=== PATIENT | female | born 1955 | race Caucasian/White ===

== ENCOUNTER 2017-10-12 03:04 | Emergency (ER) | payer MEDICAID ==
[~2017-10-12] VITALS: Ht 170.2 cm; Wt 73.5 kg
[~2017-10-12 03:04] MED LIST: ADULT LOW DOSE81 MG; ALBUTEROL INHAL17 GM IH; ALPRAZOLAM 0.0.25 M1; AMBIEN 10 MG TA10 MG; ASPIR 8181 M1 PO; CARVEDILOL12.5 MG PO; CIPRO500 MG PO; CYCLOBENZAPRINE5 MG PO; FISH OIL 1,001000 M2 PO; FISHOIL; FLAGYL500 MG PO; FLEXERIL PO; FLOMAX0.4 MG PO; HYDROCODON-ACE1 EAC7; LEVAQUIN 750 M750 MG PO; LEVSIN0.125 MG SUBLING; LEXAPRO20 MG PO; MACROBID 100 M100 M1 PO; NORCO 5-325 TA1 EACH PO; OXYCONTIN; OXYCONTIN10 M1; OXYCONTIN10 M1 PO; OXYCONTIN20 M1; PLAVIX 75 MG TA75 M1 PO; PLAVIX 75 MG TA75 MG; PREDNISONE 20 M20 MG PO; PYRIDIUM200 MG PO; TESSALON200 MG PO; ULTRAM50 MG PO; UNICOMPLEX M TA1 TA1; VICODIN 5-3001 EACH; VICODIN 5-5001 EACH PO; VITAMIN D; VYTORIN; WELLBUTRIN XL150 MG PO; XANAX 0.5 MG0.5 MG PO; ZPAK PO
[2017-10-12 03:35] VITALS: BP 154/87
[2017-10-12] MEDS ORDERED: PRILOSEC 10MG C10 MG PO (15:21)
[2017-10-12] MEDS ORDERED: NEXIUM 40 MG CA40 M1 PO (15:22)
[2017-10-12] MEDS ORDERED: PROMS25 WY RECTAL (15:22)
[2017-10-12] MEDS ORDERED: NITROFURANTOIN25 MG PO (15:22)
[2017-10-12] MEDS ORDERED: ALL DAY ALLERGY10 M3 PO (15:23)
[2017-10-12] MEDS ORDERED: OXYCONTIN10 M1 PO (15:23)
[2017-10-12] MEDS ORDERED: FLONASE 0.05%50 MCG NASAL (15:24)
== END 2017-10-12 03:37 ==
LOC: M.ERS 03:04
DX: F10.929 Alcohol use, unspecified with intoxication, unspecified (principal); I25.2 Old myocardial infarction; F17.210 Nicotine dependence, cigarettes, uncomplicated; Z90.710 Acquired absence of both cervix and uterus; Z88.2 Allergy status to sulfonamides; Z88.0 Allergy status to penicillin; Z88.1 Allergy status to other antibiotic agents; Z88.5 Allergy status to narcotic agent; Z88.8 Allergy status to other drugs, medicaments and biological substances

== ENCOUNTER 2017-10-12 15:02 | Emergency (ER) | payer MEDICAID ==
[~2017-10-12] VITALS: Ht 170.2 cm; Wt 77.1 kg
--- NOTE | ~2017-10-12 | EKG ---
[place] [address] ELECTROCARDIOGRAM REPORT Name: ALEAH DINH Room: [facility]#: [id number] Admission: 10/12/17 Attend Phys: Discharge: 10/12/17 Date of : 53 Report #: [id number] THIS REPORT FOR: //name// [facility] ED Test Date: 2017-10-12 Test Time: 15:21:43 Pat Name: ALEAH DINH Department: Room: Gender: F Marketing Effectiveness Manager: Gustavo MARTINEZ : 1955 Requested By: Shaun Quinones Order Number: [id number] MD: Measurements Intervals [place] Rate: 68 P: [place]: QRS: 48 QRSD: 92 T: -33 QT: 468 QTc: 498 Interpretive Statements Atrial flutter Borderline T abnormalities, inferior leads Borderline prolonged QT interval Compared to ECG 08/06/2017 08:08:13 T-wave abnormality now present Sinus rhythm no longer present Myocardial infarct finding no longer present [email or web address] By: 1521 1521 Epiphany Epiphany, /EPI
[2017-10-12] MEDS ORDERED: PRILOSEC 10MG C10 MG PO (15:21)
[2017-10-12] MEDS ORDERED: NITROFURANTOIN25 MG PO (15:22)
[2017-10-12] MEDS ORDERED: NEXIUM 40 MG CA40 M1 PO (15:22)
[2017-10-12] MEDS ORDERED: PROMS25 WY RECTAL (15:22)
[2017-10-12] MEDS ORDERED: OXYCONTIN10 M1 PO (15:23)
[2017-10-12] MEDS ORDERED: ALL DAY ALLERGY10 M3 PO (15:23)
[2017-10-12] MEDS ORDERED: FLONASE 0.05%50 MCG NASAL (15:24)
[2017-10-12 15:42] LABS: ABSOLUTE BASOPHILS 0.1 thou/uL (0.0-0.2); ABSOLUTE LYMPHOCYTES 1.8 thou/uL (0.8-5.3); ABSOLUTE MONOCYTES 0.6 thou/uL (0.0-1.2); ABSOLUTE NEUTROPHILS 8.6 thou/uL (1.6-8.1); BASOPHILS 0.5 %; EOSINOPHILS 0.1 %; HEMATOCRIT 38.6 % (37.0-47.0); HEMOGLOBIN 12.9 gm/dL (12.0-15.0); LYMPHOCYTES 16.6 %; MCH 30.6 pg (26.0-34.0); MCHC 33.5 g/dL (28.0-37.0); MCV 91.3 fL (80.0-100.0); MONOCYTES 5.1 %; MPV 8.3 fl. (7.2-11.1); NUCLEATED RBCS 0 /100WBC; PLATELET COUNT* 246 thou/uL (150-400); POLYS 77.7 %; RBC 4.22 mil/uL (4.20-5.00); RDW-CV 15.6 % (10.5-14.5); WBC 11.1 thou/uL (4.0-11.0)
[2017-10-12 15:46] LABS: ANION GAP 12 mmol/L (7-16); BUN 11 mg/dL (7-18); CALCIUM 8.6 mg/dL (8.5-10.1); CHLORIDE 103 mmol/L (98-107); CO2 27 mmol/L (21-32); CREATININE 1.3 mg/dL (0.6-1.3); GLUCOSE 142 mg/dL (70-99); SODIUM 142 mmol/L (136-145)
[2017-10-12 15:53] LABS: ALBUMIN 3.3 g/dL (3.4-5.0); ALKALINE PHOSPHATASE 107 U/L (46-116); SGOT 20 U/L (15-37); SGPT 21 U/L (30-65); TOTAL BILIRUBIN 0.7 mg/dL (<0.1-1.0); TOTAL PROTEIN 6.8 g/dL (6.4-8.2); TROPONIN-I LEVEL <0.06 ng/mL (<0.06)
[2017-10-12 15:59] LABS: ACETAMINOPHEN < 2 ug/mL (10-30); ALCOHOL 41 mg/dL (<10); SALICYLATE < 2.8 mg/dL (2.8-20.0)
[2017-10-12 16:23] LABS: URINE BILIRUBIN NEGATIVE (Negative); URINE BLOOD NEGATIVE (Negative); URINE CLARITY CLEAR; URINE COLOR YELLOW; URINE GLUCOSE-RANDOM NEGATIVE (Negative); URINE KETONES NEGATIVE (Negative); URINE LEUKOCYTES-REFLEX NEGATIVE (Negative); URINE NITRITE-REFLEX NEGATIVE (Negative); URINE PROTEIN TRACE (Negative); URINE SPECIFIC GRAVITY >= 1.030 (1.005-1.030); URINE UROBILINOGEN 0.2 E.U./dl (0.2-1.0)
[2017-10-12 16:30] LABS: AMP/METHAMP Negative (Negative); BARBITURATES Negative (Negative); BENZODIAZEPINES POSITIVE (Negative); COCAINE Negative (Negative); METHADONE Negative (Negative); OPIATES POSITIVE (Negative); PCP Negative (Negative); THC Negative (Negative)
[2017-10-12 22:58] VITALS: BP 96/57
== END 2017-10-12 22:58 | disposition home or self-care (01) ==
LOC: M.ERS 15:02
PROVIDERS: Emergency Medicine Emergency Medical Services
DX: T44.3X2A Poisoning by other parasympatholytics [anticholinergics and antimuscarinics] and spasmolytics, intentional self-harm, initial encounter (principal); T44.7X2A Poisoning by beta-adrenoreceptor antagonists, intentional self-harm, initial encounter; F32.9 Major depressive disorder, single episode, unspecified; R45.851 Suicidal ideations; F10.120 Alcohol abuse with intoxication, uncomplicated; F17.210 Nicotine dependence, cigarettes, uncomplicated; I25.2 Old myocardial infarction; Z90.710 Acquired absence of both cervix and uterus; Z88.2 Allergy status to sulfonamides; Z88.1 Allergy status to other antibiotic agents; Z88.0 Allergy status to penicillin; Z88.5 Allergy status to narcotic agent; Z88.8 Allergy status to other drugs, medicaments and biological substances; Y92.89 Other specified places as the place of occurrence of the external cause

== ENCOUNTER 2018-07-30 15:39 | Inpatient (IN) | payer MEDICAID ==
[~2018-07-30] VITALS: Ht 170.2 cm; Wt 79.8 kg
[~2018-07-30 15:39] MED LIST changes: +ALL DAY ALLERGY10 M3 PO; +FLONASE 0.05%50 MCG NASAL; +NEXIUM 40 MG CA40 M1 PO; +NITROFURANTOIN25 MG PO; +PRILOSEC 10MG C10 MG PO; +PROMS25 WY RECTAL
[2018-07-30 15:44] VITALS: BP 123/93
--- NOTE | 2018-07-30 16:09 | NUR ---
[facility] AT BEDSIDE FOR NEBULIZER TREATMENT.
[2018-07-30] MEDS ORDERED: CRESTOR40 MG PO (16:12)
[2018-07-30 16:26] LABS: INFLUENZA B ANTIGEN None Detected (None Detect)
[2018-07-30 17:33] LABS: ABSOLUTE BASOPHILS 0.1 thou/uL (0.0-0.2); ABSOLUTE EOSINOPHILS 0.1 thou/uL (0.0-0.7); ABSOLUTE LYMPHOCYTES 2.6 thou/uL (0.8-5.3); ABSOLUTE NEUTROPHILS 7.8 thou/uL (1.6-8.1); BASOPHILS 0.5 %; EOSINOPHILS 0.7 %; HEMATOCRIT 44.8 % (37.0-47.0); HEMOGLOBIN 15.1 gm/dL (12.0-15.0); LYMPHOCYTES 22.6 %; MCH 31.6 pg (26.0-34.0); MCHC 33.7 g/dL (28.0-37.0); MCV 93.6 fL (80.0-100.0); MONOCYTES 8.5 %; MPV 7.9 fl. (7.2-11.1); NUCLEATED RBCS 0 /100WBC; PLATELET COUNT* 166 thou/uL (150-400); POLYS 67.7 %; RBC 4.78 mil/uL (4.20-5.00); RDW-CV 15.8 % (10.5-14.5); WBC 11.5 thou/uL (4.0-11.0)
[2018-07-30 17:43] LABS: ANION GAP 11 mmol/L (7-16); BUN 31 mg/dL (7-18); CALCIUM 9.7 mg/dL (8.5-10.1); CHLORIDE 98 mmol/L (98-107); CO2 25 mmol/L (21-32); CREATININE 1.2 mg/dL (0.6-1.3); GLUCOSE 90 mg/dL (70-99); SODIUM 134 mmol/L (136-145)
[2018-07-30 17:51] LABS: ALBUMIN 3.1 g/dL (3.4-5.0); ALKALINE PHOSPHATASE 89 U/L (46-116); SGOT 26 U/L (15-37); SGPT 16 U/L (30-65); TOTAL BILIRUBIN 1.1 mg/dL (<0.1-1.0); TOTAL PROTEIN 7.6 g/dL (6.4-8.2); TROPONIN-I LEVEL <0.06 ng/mL (<0.06)
[2018-07-30 18:01] LABS: APTT 28.9 Seconds (25.0-31.3); PROTIME 9.9 Seconds (9.20-11.50)
[2018-07-30 20:19] VITALS: BP 139/85
[2018-07-30 20:30] VITALS: BP 146/85
--- NOTE | 2018-07-30 20:30 | NUR ---
PT ARRIVED FROM ER VIA CART TO ROOM 308. PT SAID SHE HAS HAD BRONCHITIS AND SOA X3 DAYS. PT TESTED POSITIVE FOR INFLUENZA A. PT HAS DIMINISHED LUNG SOUNDS WITH WHEEZES, IS ON O2 @ 3 LITERS PER NASAL CANNULA. PT WITH IV IN LT FOREARM, SALINE LOCKED. PT ABLE TO PIVOT TO BSC BY HERSELF. PT VOIDS CLEAR YELLOW URINE. PT LIVES AT HOME BY HERSELF, HAS FAMILY SUPPORT. PT ORIENTED TO ROOM/POLICIES AND VERBALIZES UNDERSTANDING. FREQUENTLY USED ITEMS AND CALL LIGHT WITHIN REACH. SIDERAILS UPX2. WILL CONTINUE TO MONITOR.
[2018-07-31] VITALS: BP 159/73
[2018-07-31 04:13] LABS: ABSOLUTE LYMPHOCYTES 1.3 thou/uL (0.8-5.3); ABSOLUTE MONOCYTES 0.3 thou/uL (0.0-1.2); ABSOLUTE NEUTROPHILS 5.6 thou/uL (1.6-8.1); BASOPHILS 0.2 %; HEMATOCRIT 42.2 % (37.0-47.0); HEMOGLOBIN 14.2 gm/dL (12.0-15.0); LYMPHOCYTES 17.9 %; MCH 31.6 pg (26.0-34.0); MCHC 33.7 g/dL (28.0-37.0); MCV 93.8 fL (80.0-100.0); MONOCYTES 4.5 %; NUCLEATED RBCS 0 /100WBC; PLATELET COUNT* 175 thou/uL (150-400); POLYS 77.4 %; WBC 7.2 thou/uL (4.0-11.0)
[2018-07-31 04:19] LABS: MAGNESIUM 2.5 mg/dL (1.8-2.4)
--- NOTE | 2018-07-31 04:50 | NUR ---
PATIENT SLEPT WELL DURING THIS SHIFT. PT ABLE TO PIVOT TO BS BY HERSELF. PT VOIDS YELLOW URINE. PT ON O2 @ 3 LITERS PER NC. PT DENIES PAIN ON THIS SHIFT. PT RECEIVED RT TREATMENTS. PT IN ISOLATION FOR INFLUENZA A. IV IN LT FOREARM PATENT, SALINE LOCKED. FREQUENTLY USED ITEMS AND CALL LIGHT WITHIN REACH. SIDERAILS UPX2. WILL CONTINUE TO MONITOR.
[2018-07-31 05:24] LABS: CALCIUM 9.5 mg/dL (8.5-10.1); CREATININE 1.2 mg/dL (0.6-1.3); POTASSIUM 4.9 mmol/L (3.5-5.1)
[2018-07-31 08:15] VITALS: BP 109/59
--- NOTE | 2018-07-31 14:53 | EKG ---
[place] [address] ELECTROCARDIOGRAM REPORT Name: ALEAH DINH Room: [address] ADM IN M.R.#: [id number] Admission: 07/30/18 Attend Phys: Nancy Miller MD Discharge: Date of : 53 Report #: [id number] THIS REPORT FOR: //name// [facility] ED Test Date: 2018-07-30 Test Time: 15:45:06 Pat Name: ALEAH DINH Department: Room: [facility] Gender: F Night Clerk: Gustavo MARTINEZ : 1955 Requested By: Shaun Quinones Order Number: [id number] MD: Rubén Estrada Measurements Intervals [place] Rate: 115 P: 81 [place]: 162 QRS: 56 QRSD: 106 T: 24 QT: 349 QTc: 483 Interpretive Statements Sinus tachycardia Biatrial enlargement Low voltage, extremity leads Possible anteroseptal infarct, old Compared to ECG 10/12/2017 15:21:43 Atrial abnormality now present Low QRS voltage now present Myocardial infarct finding now present Sinus rate has increased T-wave abnormality no longer present Electronically Signed On 07-31-2018 14:53:48 HOT DIPPER by Rubén Estrada [email or web address] <ELECTRONICALLY SIGNED> By: Rubén Estrada MD, FACC 07/31/18 1453 1545 1545 Rubén Estrada MD, FAC /EPI
--- NOTE | 2018-07-31 16:01 | NUR ---
From previous record, Pt lived at home alone and was going to follow at [facility] clinic. Pt has family in the area. SW to continue to follow to assist with safe dc planning.
[2018-07-31 16:35] VITALS: BP 108/63
[2018-07-31 21:00] VITALS: BP 105/60
[2018-08-01 04:30] LABS: CALCIUM 9.8 mg/dL (8.5-10.1); CREATININE 1.3 mg/dL (0.6-1.3); POTASSIUM 4.6 mmol/L (3.5-5.1)
--- NOTE | 2018-08-01 05:09 | NUR ---
PATIENT SLEPT WELL DURING THIS SHIFT. PT ON O2 @ 3LITERS PER NASAL CANNULA. PT REFUSED BREATHING TREATMENTS FOR THE NIGHT EARLY IN THE SHIFT STATING SHE WOULD LIKE TO HAVE A GOOD NIGHTS SLEEP. PT INSTRUCTED TO CALL IF NEEDING A TREATMENT. PT ABLE TO PIVOT TO BSC BY HERSELF. PT DENIES PAIN. FREQUENTLY USED ITEMS AND CALL LIGHT WITHIN REACH. SIDERAILS UPX2. WILL CONTINUE TO MONITOR.
[2018-08-01 09:00] VITALS: BP 118/76
[2018-08-01 16:54] VITALS: BP 96/59
[2018-08-01 18:26] LABS: URINE BILIRUBIN NEGATIVE (Negative); URINE BLOOD 1+ (Negative); URINE CLARITY CLEAR; URINE COLOR YELLOW; URINE GLUCOSE-RANDOM NEGATIVE (Negative); URINE KETONES NEGATIVE (Negative); URINE LEUKOCYTES-REFLEX NEGATIVE (Negative); URINE NITRITE-REFLEX NEGATIVE (Negative); URINE PROTEIN 1+ (Negative); URINE SPECIFIC GRAVITY >= 1.030 (1.005-1.030); URINE UROBILINOGEN 0.2 E.U./dl (0.2-1.0)
[2018-08-01 18:41] LABS: URIC ACID CRYSTALS >10 Many /LPF (None Seen)
[2018-08-01 18:42] LABS: BACTERIA-REFLEX 1-9 Few /HPF (None Seen); URINE RBC 0-2 Rare /HPF (0-2); URINE WBC-REFLEX 0-5 Rare /HPF (0-5)
[2018-08-01 18:43] LABS: HYALINE CASTS 0-3 Few /LPF (None Seen); MUCUS None Seen strn/LPF (None Seen); SQUAMOUS 0-3 Few /LPF (0-3)
--- NOTE | 2018-08-01 19:53 | NUR ---
PATIENT HAS BEEN A/O X 4 THIS SHIFT. MEDICATED FOR RIB PAIN WITH GOOD RELIEF. REMAINS ON O2 AT 3L/NC, O2 SATS IN THE MID 90s. PATIENT UP AD TOBI IN ROOM. SLEPT IN NAPS THIS SHIFT. TOLERATING DIET. AFEBRILE. REMAINS IN DROPLET ISOLATION. HOURLY ROUNDING COMPLETED. CALL LIGHT WITHIN REACH. WILL CONTINUE WITH PLAN OF CARE.
[2018-08-01 20:20] VITALS: BP 120/70
--- NOTE | 2018-08-02 06:31 | NUR ---
PT SLEPT WELL OVERNIGHT. REFUSED RT TX OVERNIGHT SO SHE COULD SLEEP. CONGESTED COUGH HEARD. SL IV. UP AD TOBI IN ROOM TO VOID. REMAINS ON DROPLET ISOLATION FOR +FLU, TAMIFLU GIVEN ORDERED. O2 3L NC. PO ABX GIVEN SCHEDULED. DNR. ABLE TO USE CALL LITE AND MAKE NEEDS KNOWN. DENIES FURTHER NEEDS THIS MORNING.
[2018-08-02 08:30] VITALS: BP 112/74
[2018-08-02 17:19] VITALS: BP 126/59
[2018-08-02 20:00] VITALS: BP 116/73
--- NOTE | 2018-08-02 20:00 | NUR ---
PATIENT HAS BEEN A/O X 4 THIS SHIFT. MEDICATED FOR JAW PAIN RELATED TO TMJ X 2 TODAY WITH PARTIAL RELIEF. PATIENT CONTINUES ON O2 AT 2L/NC AND RT TREATMENTS. PATIENT WITH PATENT SALINE LOCK TO LEFT FOREARM. PATIENT TO BSC/BRP INDEPENDENTLY. PATIENT TO HAVE REPEAT LABS IN AM. POSSIBLE DC IN THE NEXT FEW DAYS. REMAINS IN DROPLET PRECAUTIONS FOR FLU A. HOURLY ROUNDING COMPLETED. CALL LIGHT WITHIN REACH. WILL CONTINUE WITH PLAN OF CARE.
--- NOTE | 2018-08-02 20:00 | NUR ---
RECEIVED REPORT AND ASSUMED CARE OF PT, ASSESSMENT COMPLETED. PT SOB WITH ANY ACTIVITY, HOB ELEVATED. HAVING FREQ NON-PROD COUGH. O2 ON AT 2L/NC. REMAINS IN ISOLATION FOR FLU. NO COMPLAINTS VOICED AT PRESENT. WILL CONT TO MONITOR AND ASSIST DURING NIGHT.
[2018-08-03 03:38] LABS: ABSOLUTE LYMPHOCYTES 3.8 thou/uL (0.8-5.3); ABSOLUTE MONOCYTES 1.6 thou/uL (0.0-1.2); ABSOLUTE NEUTROPHILS 6.1 thou/uL (1.6-8.1); BASOPHILS 0.1 %; EOSINOPHILS 0.1 %; HEMATOCRIT 40.1 % (37.0-47.0); HEMOGLOBIN 13.3 gm/dL (12.0-15.0); LYMPHOCYTES 33.1 %; MCH 31.1 pg (26.0-34.0); MCHC 33.2 g/dL (28.0-37.0); MCV 93.9 fL (80.0-100.0); MONOCYTES 13.8 %; MPV 7.7 fl. (7.2-11.1); NUCLEATED RBCS 0 /100WBC; PLATELET COUNT* 186 thou/uL (150-400); POLYS 52.9 %; RBC 4.28 mil/uL (4.20-5.00); RDW-CV 15.8 % (10.5-14.5); WBC 11.6 thou/uL (4.0-11.0)
[2018-08-03 04:38] LABS: CALCIUM 9.4 mg/dL (8.5-10.1); CREATININE 1.2 mg/dL (0.6-1.3); POTASSIUM 4.4 mmol/L (3.5-5.1)
--- NOTE | 2018-08-03 07:32 | NUR ---
SLEPT WELL TONIGHT. HELD RESP TX AND VS SO PT COULD SLEEP. STATES SHE FEELS BETTER THIS AM. CONT TO BE SOB WITH ACTIVITY. NO CHANGE IN ASSESSMENT. HS GOALS OF REST AND SAFETY ACHIEVED. HOURLY ROUNDING OBSERVED.
[2018-08-03 09:05] VITALS: BP 125/72
[2018-08-03] MEDS ORDERED: OSELB75 PO (13:48)
[2018-08-03] MEDS ORDERED: LEVAQUIN 750 M750 MG PO (13:48)
[2018-08-03] MEDS ORDERED: COMBIVENT INH (13:49)
[2018-08-03] MEDS ORDERED: PREDNISONE 20 M20 MG PO (13:50)
[2018-08-03 15:43] VITALS: BP 125/72
--- NOTE | 2018-08-03 15:44 | NUR ---
Pt to dc home today with oxygen 2L needed and pt needs ride home through [employer]. BRAYAN sent referral and order to [facility] [phone] fax [phone]. BRAYAN called [facility] [phone] and scheduled transport home for between 5 pm and 6 pm. Pt nurse aware.
--- NOTE | 2018-08-03 17:15 | NUR ---
PATIENT DISCHARGED TO HOME. DISCHARGE PAPERS REVIEWED AND SIGNED. PRESCRIPTIONS AND INFORMATION SHEETS GIVEN. IV REMOVED. OXYGEN PROVIDED. PATIENT DENIES ANY FURTHER NEEDS. PATIENT TAKEN BY WHEELCHAIR TO EXIT. LEFT BY MEDICAID TAXI.
== END 2018-08-03 17:15 | disposition home or self-care (01) | DRG 871 ==
LOC: M.ERS 15:39 → M.3W 17:23 → M.TBA-ER 17:23 → M.3W 20:43
PROVIDERS: Emergency Medicine Emergency Medical Services; ADMIT Family Medicine
DX: A41.89 Other specified sepsis (principal); J96.01 Acute respiratory failure with hypoxia; J44.1 Chronic obstructive pulmonary disease with (acute) exacerbation; F30.9 Manic episode, unspecified; I25.10 Atherosclerotic heart disease of native coronary artery without angina pectoris; R65.20 Severe sepsis without septic shock; I10 Essential (primary) hypertension; J10.1 Influenza due to other identified influenza virus with other respiratory manifestations; Z88.2 Allergy status to sulfonamides; Z88.1 Allergy status to other antibiotic agents; Z88.8 Allergy status to other drugs, medicaments and biological substances; Z79.899 Other long term (current) drug therapy; Z95.5 Presence of coronary angioplasty implant and graft; Z90.710 Acquired absence of both cervix and uterus; I25.2 Old myocardial infarction; Z98.891 History of uterine scar from previous surgery; Z28.21 Immunization not carried out because of patient refusal

== ENCOUNTER 2021-01-31 15:58 | Emergency (ER) | payer MEDICARE, MEDICAID ==
[~2021-01-31] VITALS: Ht 170.2 cm; Wt 67.6 kg
[~2021-01-31 15:58] MED LIST changes: +COMBIVENT INH; +CRESTOR40 MG PO; +OSELB75 PO
[2021-01-31] MEDS ORDERED: MEDROLDOSEPACK PO (16:23)
[2021-01-31] MEDS ORDERED: FLEXERIL PO (16:23)
[2021-01-31] MEDS ORDERED: HYDROCODON-ACE1 EAC7 PO (16:23)
[2021-01-31] MEDS ORDERED: REQUIP5 MG PO (16:25)
[2021-01-31] MEDS ORDERED: CARBAMAZEPINE200 M5 PO (16:26)
[2021-01-31] MEDS ORDERED: PHENERGAN 25 MG25 MG PO (16:27)
[2021-01-31 16:57] VITALS: BP 172/85
== END 2021-01-31 16:57 | disposition home or self-care (01) ==
LOC: M.ERS 15:58
DX: G89.29 Other chronic pain (principal); M54.5 Low back pain; F17.210 Nicotine dependence, cigarettes, uncomplicated; Z88.2 Allergy status to sulfonamides; Z88.1 Allergy status to other antibiotic agents; Z88.6 Allergy status to analgesic agent; Z88.8 Allergy status to other drugs, medicaments and biological substances; Z98.890 Other specified postprocedural states; Z98.51 Tubal ligation status; Z90.710 Acquired absence of both cervix and uterus

== ENCOUNTER → 2021-05-08 | Outpatient (CLI) | payer MEDICARE, MEDICAID ==
[~2021-05-08] MED LIST changes: +CARBAMAZEPINE200 M5 PO; +HYDROCODON-ACE1 EAC7 PO; +MEDROLDOSEPACK PO; +PHENERGAN 25 MG25 MG PO; +ROPINIROLE HCL5 MG PO
== END ==
LOC: M.PC 11:53
PROVIDERS: ATTEND Anesthesiology Pain Medicine
DX: M54.16 Radiculopathy, lumbar region (principal); M51.25 Other intervertebral disc displacement, thoracolumbar region; M51.37 Other intervertebral disc degeneration, lumbosacral region; F33.9 Major depressive disorder, recurrent, unspecified; F42.9 Obsessive-compulsive disorder, unspecified; M81.0 Age-related osteoporosis without current pathological fracture; Z79.899 Other long term (current) drug therapy; Z88.5 Allergy status to narcotic agent; Z88.8 Allergy status to other drugs, medicaments and biological substances

== ENCOUNTER → 2021-05-24 | Outpatient (CLI) | payer MEDICARE, MEDICAID | LOC: M.PC 10:49 | PROVIDERS: ATTEND Anesthesiology Pain Medicine | DX: M54.50 Low back pain, unspecified (principal); M79.605 Pain in left leg; Z88.1 Allergy status to other antibiotic agents; Z88.8 Allergy status to other drugs, medicaments and biological substances; Z88.6 Allergy status to analgesic agent; Z79.899 Other long term (current) drug therapy ==

== ENCOUNTER → 2021-05-31 | Outpatient (CLI) | payer MEDICARE, MEDICAID | END | disposition home or self-care (01) | LOC: M.PC 11:30 | PROVIDERS: ATTEND Anesthesiology Pain Medicine | DX: M54.16 Radiculopathy, lumbar region (principal); G89.29 Other chronic pain; Z79.899 Other long term (current) drug therapy; Z98.890 Other specified postprocedural states ==